=== PATIENT | male | born 1995 | race Caucasian/White ===

== ENCOUNTER 2018-06-07 17:17 | Emergency (ER) | payer OTHER ==
[2018-06-07] MEDS: LORAZEPAM 1 MG TAB PO (19:01)
== END 2018-06-07 20:10 | disposition home or self-care (01) ==
LOC: FTE 17:17
DX: R07.89 Other chest pain (principal)
CPT/HCPCS: 71046; 93005; 99284-25

== ENCOUNTER 2019-06-11 15:48 | Emergency (ER) | payer OTHER ==
[2019-06-11] MEDS: OXYMETAZOLINE 0.05% NASAL SPRAY (15 ML) NASAL (17:46)
== END 2019-06-11 18:40 | disposition home or self-care (01) ==
LOC: FTE 15:48
DX: S02.2XXA Fracture of nasal bones, initial encounter for closed fracture (principal); X58.XXXA Exposure to other specified factors, initial encounter; Y92.830 Public park as the place of occurrence of the external cause
CPT/HCPCS: 70160; 99283-25